=== PATIENT | male | born 2000 | race Caucasian/White ===

== ENCOUNTER 2022-11-12 05:00 | Emergency (ER) | payer BC ==
[~2022-11-12] VITALS: Ht 177.8 cm; Wt 89.8 kg
[2022-11-12] MEDS ORDERED: HYDROXYZINE HCL25 MG PO (05:19)
[2022-11-12] MEDS ORDERED: OLANZAPINE10 MG PO (05:20)
[2022-11-12] MEDS ORDERED: PROPRANOLOL HCL10 MG PO (05:21)
[2022-11-12] MEDS ORDERED: OMEPRAZOLE20 M1 PO (05:22)
[2022-11-12] MEDS ORDERED: XANAX0.5 MG PO (06:57)
--- NOTE | 2022-11-12 16:00 | EKG ---
[facility] [address] [facility] [place] [address] Signed Normal sinus rhythm with sinus arrhythmia Normal ECG No previous ECGs available Confirmed by SARMAD CORREIA MD ([id number] on 11/12/2022 3:59:48 PM Electronically Signed By: SARMAD CORREIA MD 11/12/22 1600 PATIENT NAME: RADHA GRAHAM Electrocardiogram DATE OF : [birth year] PHYSICIAN: SARMAD CORREIA MD REPORT #: [id number] REPORT IS CONFIDENTIAL AND NOT TO BE RELEASED WITHOUT AUTHORIZATION
== END 2022-11-12 07:28 | disposition home or self-care (01) ==
LOC: ED 05:00
DX: F41.0 Panic disorder [episodic paroxysmal anxiety] (principal); Z79.899 Other long term (current) drug therapy
CPT/HCPCS: 93005; 93010; 99284-25